=== PATIENT | female | born 1955 | race Caucasian/White ===

== ENCOUNTER 2016-12-25 09:49 | Emergency (ER) | payer MEDICAID, OTHER ==
[~2016-12-25] VITALS: Ht 157.5 cm; Wt 70.0 kg
[~2016-12-25 09:49] MED LIST: HYDR-2768 PO; LISI40TA PO; MEDR4TAB PO; OMEP20CA5 PO; OXYC30TA3 PO; VERA240CR PO; prempro PO
[2016-12-25 09:52] VITALS: BP 155/99; PULSE 112; RESP 17; TEMP 97.8; O2SAT 98
[2016-12-25] MEDS ORDERED: KETOROLAC TROMETHAMINE 30 MG/ML (IVP) VIAL IVP ONE (11:15)
[2016-12-25] MEDS ORDERED: SODIUM CHLORIDE 0.9% FLUSH 10 ML FLUSH IV FLUSH PRN (11:15)
--- NOTE | 2016-12-25 11:15 | PD ---
HPI Chief Complaint: Flank/Kidney Pain Time Seen by Provider: 11:00 Travel History International Travel<30 days: No Contact w/Intl Traveler<30days: No Traveled to known affect area: No History of Present Illness HPI 61-year-old postmenopausal female with chief complaint of left flank pain 7 days. Patient also reports urinary frequency and nausea without vomiting for the last 24 hours. She is reporting chills without fevers. Patient denies hematuria or abdominal pain. Symptoms severity is moderate. No alleviating factors. PFSH Past Medical History Arthritis: Yes Blood Disorders: No Anxiety: Yes Depression: Yes Cancer: No Cardiovascular Problems: Yes Chemotherapy: No Diminished Hearing: No Endocrine: No Gastrointestinal Disorders: Yes GERD: Yes Genitourinary: No Headaches: Yes Hiatal Hernia: Yes Hypertension: Yes Immune Disorder: No Musculoskeletal: Yes Neurologic: No Psychiatric: Yes Reproductive: No Respiratory: No Radiation Therapy: No Menopausal: Yes : 4 : 2 Past Surgical History Abdominal Surgery: No AICD: No Arteriovenous Shunt: No Cardiac Surgery: No Cholecystectomy: Yes (1996) Ear Surgery: No Endocrine Surgery: No Eye Surgery: No Genitourinary Surgery: No Gynecologic Surgery: Yes (ABLASION 2005) Insulin Pump: No Joint Replacement: No Oral Surgery: No Pacemaker: No Thoracic Surgery: No Other Surgery: Yes Social History Alcohol Use: No Tobacco Use: No Substance Use: No Allergies-Medications (Allergen,Severity, Reaction): Coded Allergies: codeine (Unverified Allergy, Intermediate, nausea, 10/31/16) meperidine (Unverified Allergy, Unknown, 10/31/16) Reported Meds & Prescriptions Reported Meds & Active Scripts Active Isoptin Sr (Verapamil HCl) 240 Mg Tabcr 240 Mg PO DAILY Prinivil (Lisinopril) 40 Mg Tab 40 Mg PO DAILY Medrol (Methylprednisolone) 4 Mg Tab 4 Mg PO DAILY Roxicodone (Oxycodone HCl) 30 Mg Tab 30 Mg PO Q6HPRN Prilosec (Omeprazole) 20 Mg Capcr 20 Mg PO DAILY Hctz (Hydrochlorothiazide) 25 Mg Tab 25 Mg PO DAILY Reported [prempro] PO DAILY actual dose is 0.45mg/1.5mg daily Review of Systems Except as stated in HPI: all other systems reviewed are Neg General / Constitutional: No: Fever Gastrointestinal: Positive: Nausea, No: Abdominal Pain Genitourinary: Positive: Frequency Physical Exam Narrative GENERAL: Alert female in moderate distress crying on stretcher SKIN: Focused skin assessment warm/dry. HEAD: Atraumatic. Normocephalic. EYES: Pupils equal and round. No scleral icterus. No injection or drainage. ENT: No nasal bleeding or discharge. Mucous membranes pink and moist. NECK: Trachea midline. No JVD. CARDIOVASCULAR: Regular rate and rhythm. No murmur appreciated. RESPIRATORY: No accessory muscle use. Clear to auscultation. Breath sounds equal bilaterally. GASTROINTESTINAL: Abdomen soft, non-tender, nondistended. Hepatic and splenic margins not palpable. MUSCULOSKELETAL: No obvious deformities. No clubbing. No cyanosis. No edema. BACK: Left-sided CVA tenderness. No rash. No point tenderness on palpation of the spine. NEUROLOGICAL: Awake and alert. No obvious cranial nerve deficits. Motor grossly within normal limits. Normal speech. PSYCHIATRIC: Appropriate mood and affect; insight and judgment normal. Data Data Last Documented VS Vital Signs Date Time Temp Pulse Resp B/P (MAP) Pulse Ox O2 Delivery O2 Flow Rate FiO2 12/25/16 09:52 97.8 112 17 155/99 (117) 98 Orders Orders Basic Metabolic Panel (Bmp) (12/25/16 11:05) Complete Blood Count With Diff (12/25/16 11:05) Urinalysis - C+S If Indicated (12/25/16 11:05) Ct Abd/Pel W/O Iv Contrast (12/25/16 11:05) Iv Access Insert/Monitor (12/25/16 11:05) Sodium Chloride 0.9% Flush (Ns Flush) (12/25/16 11:15) Ketorolac Inj (Toradol Inj) (12/25/16 11:15) Labs Laboratory Tests Test 12/25/16 11:15 12/25/16 11:50 White Blood Count 6.7 TH/MM3 Red Blood Count 4.88 MIL/MM3 Hemoglobin 15.1 GM/DL Hematocrit 43.0 % Mean Corpuscular Volume 88.2 FL Mean Corpuscular Hemoglobin 31.0 PG Mean Corpuscular Hemoglobin Concent 35.1 % Red Cell Distribution Width 13.6 % Platelet Count 357 TH/MM3 Mean Platelet Volume 6.6 FL Neutrophils (%) (Auto) 67.7 % Lymphocytes (%) (Auto) 21.9 % Monocytes (%) (Auto) 8.6 % Eosinophils (%) (Auto) 1.2 % Basophils (%) (Auto) 0.6 % Neutrophils # (Auto) 4.6 TH/MM3 Lymphocytes # (Auto) 1.5 TH/MM3 Monocytes # (Auto) 0.6 TH/MM3 Eosinophils # (Auto) 0.1 TH/MM3 Basophils # (Auto) 0.0 TH/MM3 CBC Comment DIFF FINAL Differential Comment Blood Urea Nitrogen 17 MG/DL Creatinine 0.88 MG/DL Random Glucose 110 MG/DL Calcium Level 9.6 MG/DL Sodium Level 134 MEQ/L Potassium Level 3.9 MEQ/L Chloride Level 101 MEQ/L Carbon Dioxide Level 23.7 MEQ/L Anion Gap 9 MEQ/L Estimat Glomerular Filtration Rate 66 ML/MIN Urine Color LIGHT-YELLOW Urine Turbidity CLEAR Urine pH 6.0 Urine Specific [place] 1.013 Urine Protein NEG mg/dL Urine Glucose (UA) NEG mg/dL Urine Ketones NEG mg/dL Urine Occult Blood NEG Urine Nitrite NEG Urine Bilirubin NEG Urine Urobilinogen LESS THAN 2.0 MG/DL Urine Leukocyte Esterase NEG Urine RBC LESS THAN 1 /hpf Urine WBC 1 /hpf Urine Squamous Epithelial Cells 1 /hpf Urine Transitional Epithelial Cells <1 /hpf Microscopic Urinalysis Comment CULT NOT INDICATED MDM Medical Decision Making Medical Screen Exam Complete: Yes Emergency Medical Condition: Yes Differential Diagnosis Nephrolithiasis, pyelonephritis, lumbar strain, UTI Narrative Course 61-year-old female with chief complaint of left flank pain 7 days. Patient is reporting chills and nausea without vomiting. On exam patient has left-sided CVA tenderness. IV access established, labs, UA, CT of the abdomen pelvis ordered and pending. IV Toradol administered patient be observed emergency current. CBC unremarkable BMP unremarkable CT the abdomen pelvis: No evidence of renal calculi, obstruction, pyelonephritis UA: Negative for infection Patient observed sleeping on the stretcher comfortably on multiple occasions throughout the ER visit. Diagnostic studies discussed with patient. She was advised to follow-up with her PCP and pain management doctor. He was understanding and agrees to plan. Diagnosis Primary Impression: Flank pain Referrals: Primary Care Physician Additional Instructions: Take [id number] Motrin and/or Tylenol as needed for pain. Follow-up with her primary care doctor. Follow-up with her pain management doctor. Disposition: 01 DISCHARGE HOME Condition: Stable Pushpa Jarquin Dec 25, 2016 11:15
[2016-12-25 11:29] LABS: AUTOMATED NEUTROPHIL # 4.6 TH/MM3 (1.8-7.7); BASOPHIL % 0.6 % (0.0-2.0); EOSINOPHIL # 0.1 TH/MM3 (0-0.4); EOSINOPHIL % 1.2 % (0.0-4.0); HEMO FLAGS DIFF FINAL; LYMPH % 21.9 % (9.0-44.0); LYMPHOCYTE # 1.5 TH/MM3 (1.0-4.8); MEAN CELL VOLUME 88.2 FL (80.0-100.0); MEAN CORPUSCULAR HGB CONC 35.1 % (32.0-36.0); MONO % 8.6 % (0.0-8.0); NEUT % 67.7 % (16.0-70.0); PLATELET COUNT 357 TH/MM3 (150-450); RED BLOOD COUNT 4.88 MIL/MM3 (4.00-5.30); RED CELL DISTRIBUTION WIDTH 13.6 % (11.6-17.2); WHITE BLOOD COUNT 6.7 TH/MM3 (4.0-11.0)
[2016-12-25 11:44] LABS: BICARBONATE 23.7 MEQ/L (21.0-32.0); POTASSIUM 3.9 MEQ/L (3.5-5.1)
--- NOTE | 2016-12-25 12:37 | RADRPT ---
EXAM DATE/TIME: 12/25/2016 11:24 [facility] COMPARISON: No previous studies available for comparison. INDICATIONS : Left flank pain ORAL CONTRAST: No oral contrast ingested. RADIATION DOSE: 6.74 CTDIvol (mGy) MEDICAL HISTORY : Hypertension. Cardiovascular disease SURGICAL HISTORY : Cholecystectomy. ENCOUNTER: Initial ACUITY: 1 day PAIN SCALE: 9/10 LOCATION: Right flank TECHNIQUE: Volumetric scanning of the abdomen and pelvis was performed. Using automated exposure control and ad justment of the mA and/or kV according to patient size, radiation dose was kept as low as reasonably achievable to obtain optimal diagnostic quality images. DICOM format image data is available electro nically for review and comparison. FINDINGS: Lung bases are clear. There is mild fatty replacement to the liver. Surgical clips are seen in the gallbladder fossa. Spleen and pancreas unremarkable. RIGHT KIDNEY: There is no evidence for stone or obstruction. LEFT KIDNEY: There is no evidence for stone or obstruction. There is no calcification along the expected course of either the right or the left ureter. Pelvic contents unremarkable. CONCLUSION: I see no evidence for stone or obstruction. I do not see an etiology for the patient's right flank pain. Lack of intravenous contrast makes detection of subtle pyelonephritis difficult. Correlation is maria del rosario bose. Reinier Coffman MD FACR on December 25, 2016 at 11:45 Board Certified Radiologist. This report was verified electronically.
[2016-12-25 12:55] LABS: BLOOD, URINE NEG (NEG); COMMENT (UR) CULT NOT INDICATED; CULTURE IF INDICATED CULT NOT INDICATED; GLUCOSE,URINE NEG (NEG); KETONE, URINE NEG (NEG); NITRITE,URINE NEG (NEG); SQUAMOUS EPITHELIAL CELL URINE 1 /hpf (0-5); TRANSITIONAL EPI CELLS, URINE <1 /hpf; URINE COLOR LIGHT-YELLOW (YELLW/STRAW)
== END 2016-12-25 13:30 | disposition home or self-care (01) ==
LOC: NEPD 09:49
DX: R10.9 Unspecified abdominal pain (principal); R35.0 Frequency of micturition; R11.0 Nausea; R68.83 Chills (without fever); I10 Essential (primary) hypertension; Z87.39 Personal history of other diseases of the musculoskeletal system and connective tissue; Z86.59 Personal history of other mental and behavioral disorders; Z86.79 Personal history of other diseases of the circulatory system; Z87.19 Personal history of other diseases of the digestive system
CPT/HCPCS: 74176; 80048; 81001; 85025; 96374; 99285; J1885